=== PATIENT | female | born 1990 | race Caucasian/White ===

== ENCOUNTER 2020-08-28 09:04 | Emergency (ER) | payer BC, SELFPAY ==
--- NOTE | ~2020-08-28 | CT_ITS ---
EXAMINATION: CT abdomen pelvis w con DATE: 08/28/2020 10:14 INDICATION: Left lower quadrant and left flank abdominal pain. Nausea. Hematuria. TECHNIQUE: Computed tomography (CT) of the abdomen and pelvis was performed with 100 cc Omnipaque 350 intravenous contrast. Automated exposure control and iterative reconstruction technique were employe d. Exam dose: 1295.09 mGy-cm total exam DLP. COMPARISON: 07/18/2017 CTA chest and abdomen and pelvis FINDINGS: The lung bases are clear. Heart size is borderline. There is a left ventricular pacemaker l ead. No pericardial or pleural effusion. The lung bases are clear of consolidation. The liver, gallbladder, bile ducts, spleen, pancreas, pancreatic duct, and adrenal glands and right k idney are unremarkable. There is scarring and parenchymal loss of the left kidney. No urinary tract calculus or hydroureteron ephrosis. There is moderate diffuse thickening of the urinary bladder wall. The uterus and adnexal areas are un remarkable. The appendiceal stump appears unchanged since 07/18/2017 no bowel obstruction, bowel wall thickening, pneumatosis or intraperitoneal free air. Included skeletal structures are unremarkable. IMPRESSION: Chronic pyelonephritis of left kidney Moderate thickening of the urinary bladder wall; cystitis is not excluded Reviewed, dictated and finalized at [facility]. Reviewed, dictated and finalized at [facility].
[2020-08-28 09:08] VITALS: BP 141/81; PULSE 73; RESP 14; TEMP 36.1; O2SAT 100
--- NOTE | 2020-08-28 09:13 | ED.ABDPAIN ---
HPI - Abdominal Pain General Chief Complaint: Abdominal Pain Stated Complaint: left sided abd pain Time Seen by Provider: 08/28/20 09:13 History of Present Illness HPI narrative: 30 yo female w/ reccurent UTI, CHF presents to the ED with UTI and flank pain. She reports that she has had urinary frequency and dyuria for several days. Over the past day she has developed pain in the left flank radiating to the LLQ. the pain is modrate. She reports a previous renal US showing a small scarred left kidney. She is followed by a urologist, but says that she does not believe he is a good fit. No fever, vomiting, diarrhea, constipation. Related Data Allergies Allergy/AdvReac Type Severity Reaction Status Date / Time latex Allergy Mild Hives Verified 08/28/20 09:21 Review of Systems Review of Systems: All systems reviewed & are unremarkable except as noted in HPI and below Constitutional: Constitutional: Denies chills, Denies fever(s) and Denies weakness Cardiovascular: Cardiovascular: Denies chest pain Respiratory: Respiratory: Denies dyspnea Gastrointestinal: Gastrointestinal: Reports abdominal pain, Denies constipation, Denies diarrhea, Reports nausea and Denies vomiting Genitourinary: Genitourinary: Denies hematuria, Reports nocturia, Reports dysuria and Reports flank pain Neurologic: Denies dizziness and Denies weakness PMFSH Past Medical History Medical History (Updated 08/28/20 @ 13:08 by Pedro Belcher MD) CHF exacerbation Recurrent UTI Surgical History Surgical History (Updated 08/28/20 @ 13:09 by Pedro Belcher MD) History of cystoscopy Social History Social History Gender identity (if verbalized by the patient): Female Exam Const: General: healthy appearing, no acute distress and alert Nutritional Appearance: obese Orientation/consciousness: patient oriented x3 HENMT: Head: normal to inspection Resp: Effort & Inspection: normal respiratory effort Auscultation: clear to auscultation bilaterally, no rales, no rhonchi and no wheezes Cardio: Jugular venous distension: no JVD Rate: regular rate Rhythm: regular rhythm Heart sounds: no murmurs GI: Inspection: non-distended GI Palp: Yes Soft to palpation and Yes Tenderness to palpation present (GI) (LLQ) : General: Yes CVA tenderness on the left Skin: General skin exam: normal color Neuro: General: patient oriented x3 and moves all extremities Speech: normal speech Extrem: General: no edema Psych: Appearance: well kempt Affect: normal affect Course Course Emergency Course: I discussed the case with urology. They will see her in clinic. Vital Signs Vital signs: Vital Signs Temperature 36.1 C L 08/28/20 09:08 Pulse Rate 73 08/28/20 09:08 Respiratory Rate 14 08/28/20 09:08 Blood Pressure 141/81 H 08/28/20 09:08 Pulse Oximetry 100 08/28/20 09:08 Temperature 36.1 C L 08/28/20 09:08 Pulse Rate 70 08/28/20 11:41 Respiratory Rate 15 08/28/20 11:41 Blood Pressure 138/76 08/28/20 11:41 Pulse Oximetry 99 08/28/20 11:41 MDM - Abdominal Pain Differential Diagnosis Differential diagnosis: Likely calculus of kidney, constipation and other (pyelonephritis) Medical Records Attestation: I reviewed the patient's medical records. Lab Data Attestation: I reviewed the patient's lab results. Result diagrams: 08/28/20 09:34 08/28/20 09:34 Labs: Lab Results 08/28/20 08/28/20 08/28/20 Range/Units 09:17 09:34 09:34 WBC 9.4 (4.5-10.0) K/mm3 RBC 4.46 (4.2-5.4) M/mm3 Hgb 14.4 (12.0-15.0) g/dL Hct 41.3 (37.0-47.0) % MCV 92.6 (80-100) fl MCH 32.3 (26-34) pg MCHC 34.9 (32-36) g/dl RDW 12.4 (11.5-14.5) % Plt Count 314 (150-375) k/mm3 MPV 10.1 (7.4-10.4) fl Immature Gran % (Auto) 0.2 (0-0.5) % Neut % (Auto) 75.2 H (45.5-73.1) % Lymph % (Auto) 16.9 L (18.3-44.2) % [place] % (Auto) 6.8 (2.6-8.5) % Eos % (Auto)
[2020-08-28 09:35] LABS: Add Urine Microscopic? YES; Appearance Urine Cloudy (Clear); Bacteria Urine Trace /hpf; Bilirubin Urine Negative (Negative); Blood Urine 3+ (Negative); Color Urine Yellow (Yellow); Glucose Urine UA Negative (Negative); Ketones Urine Negative (Negative); Leukocyte Esterase Ur 3+ LEU/UL (Negative); Mucus Urine Rare /lpf; Nitrate Urine Negative (Negative); Protein Urine 2+ mg/dL (Negative); RBC Urine >75 /hpf (0-2); Specific Grav Ur 1.016 (1.001-1.035); Squamous Epithelial Cell Urine Few /hpf (Few); Urobilinogen Urine Negative mg/dL (<2.0); WBC Clumps Urine Present /HPF; WBC Urine >75 /hpf
[2020-08-28 09:43] LABS: Basophils Percent Auto 0.4 % (0.2-1.2); Eosinophils Absolute Auto 0.1 K/mm3 (0-0.3); Eosinophils Percent Auto 0.5 % (0-4.4); Hematocrit 41.3 % (37.0-47.0); Hemoglobin 14.4 g/dL (12.0-15.0); Immature Granulocyte Absolute 0.02 K/mm3 (0.00-0.031); Immature Granulocyte Percent A 0.2 % (0-0.5); Lymphocytes Absolute Auto 1.59 K/mm3 (0.9-3.2); Lymphocytes Percent Auto 16.9 % (18.3-44.2); Mean Corpuscular HGB Conc 34.9 g/dl (32-36); Mean Corpuscular Hemoglobin 32.3 pg (26-34); Mean Corpuscular Volume 92.6 fl (80-100); Mean Platelet Volume 10.1 fl (7.4-10.4); Monocytes Absolute Auto 0.6 K/mm3 (0.1-0.6); Monocytes Percent Auto 6.8 % (2.6-8.5); Neutrophils Absolute Auto 7.1 K/mm3 (1.3-6.7); Neutrophils Percent Auto 75.2 % (45.5-73.1); Platelet Count Result 314 k/mm3 (150-375); Red Blood Count 4.46 M/mm3 (4.2-5.4); Red Cell Distribution Width 12.4 % (11.5-14.5); White Blood Count 9.4 K/mm3 (4.5-10.0)
[2020-08-28 09:55] LABS: Alanine Aminotransferase 26 U/L (4-35); Albumin Level 4.7 g/dL (3.5-5.1); Alkaline Phosphatase 58 U/L (38-126); Anion Gap 9 mmol/L (8-16); Aspartate Amino Transferase 27 U/L (14-36); Bilirubin,Total 0.6 mg/dL (0.2-1.3); Blood Urea Nitrogen 16 mg/dL (7-17); Calcium 9.7 mg/dL (8.4-10.2); Carbon Dioxide 24 mmol/L (22-30); Chloride 105 mmol/L (98-107); Estimated CRCL calculation 102 ml/min; Estimated Glomerular Filt Rate > 60; Glucose 110 mg/dL (65-105); Lipase 86 U/L (23-300); Potassium 4.4 mmol/L (3.4-5.0); Sodium 138 mmol/L (137-145)
[2020-08-28 11:41] VITALS: BP 138/76; PULSE 70; RESP 15; O2SAT 99
== END 2020-08-28 11:42 | disposition home or self-care (01) ==
PROVIDERS: Emergency Provider Emergency Medicine
DX: N12 Tubulo-interstitial nephritis, not specified as acute or chronic (principal); I50.9 Heart failure, unspecified; Z87.440 Personal history of urinary (tract) infections
CPT/HCPCS: 36415; 74177; 80053; 81001; 81025; 83690; 85025; 87077; 87086; 87088; 87186; 96365; 99284; J0696; Q9967

== ENCOUNTER 2021-01-01 11:28 | Emergency (ER) | payer BC, SELFPAY ==
[2021-01-01 11:30] VITALS: BP 140/77; PULSE 76; RESP 18; TEMP 36.4; O2SAT 100
[2021-01-01 11:44] LABS: Basophils Percent Auto 0.5 % (0.2-1.2); Eosinophils Percent Auto 0.6 % (0-4.4); Hematocrit 40.9 % (37.0-47.0); Hemoglobin 14.1 g/dL (12.0-15.0); Immature Granulocyte Absolute 0.02 K/mm3 (0.00-0.031); Immature Granulocyte Percent A 0.3 % (0-0.5); Lymphocytes Absolute Auto 1.93 K/mm3 (0.9-3.2); Lymphocytes Percent Auto 31.3 % (18.3-44.2); Mean Corpuscular HGB Conc 34.5 g/dl (32-36); Mean Corpuscular Hemoglobin 31.8 pg (26-34); Mean Corpuscular Volume 92.3 fl (80-100); Mean Platelet Volume 10.1 fl (7.4-10.4); Monocytes Absolute Auto 0.4 K/mm3 (0.1-0.6); Monocytes Percent Auto 6.5 % (2.6-8.5); Neutrophils Absolute Auto 3.8 K/mm3 (1.3-6.7); Neutrophils Percent Auto 60.8 % (45.5-73.1); Platelet Count Result 323 k/mm3 (150-375); Red Blood Count 4.43 M/mm3 (4.2-5.4); Red Cell Distribution Width 12.1 % (11.5-14.5); White Blood Count 6.2 K/mm3 (4.5-10.0)
[2021-01-01 11:57] LABS: Alanine Aminotransferase 19 U/L (4-35); Albumin Level 4.3 g/dL (3.5-5.1); Alkaline Phosphatase 60 U/L (38-126); Anion Gap 9 mmol/L (8-16); Aspartate Amino Transferase 21 U/L (14-36); Bilirubin,Total 0.2 mg/dL (0.2-1.3); Blood Urea Nitrogen 16 mg/dL (7-17); Calcium 8.8 mg/dL (8.4-10.2); Carbon Dioxide 22 mmol/L (22-30); Chloride 107 mmol/L (98-107); Estimated CRCL calculation 104 ml/min; Estimated Glomerular Filt Rate > 60; Glucose 185 mg/dL (65-105); Lipase 91 U/L (23-300); Sodium 138 mmol/L (137-145)
--- NOTE | 2021-01-01 12:00 | ED.ABDPAIN ---
HPI - Abdominal Pain General Chief Complaint: Abdominal Pain Stated Complaint: abd pain Time Seen by Provider: 01/01/21 11:50 Related Data Home Medications Medication Instructions Recorded Confirmed ciprofloxacin HCl 01/01/21 levothyroxine 01/01/21 losartan 01/01/21 metoprolol succinate PO 01/01/21 spironolactone 01/01/21 torsemide mg 01/01/21 01/01/21 trazodone 01/01/21 venlafaxine mg PO 01/01/21 Allergies Allergy/AdvReac Type Severity Reaction Status Date / Time latex Allergy Mild Hives Verified 01/01/21 11:54 Review of Systems Review of Systems: Narrative: Epigastric pain for the past 2 days. Associated with nausea and vomiting first thing in the morning. She recently completed 2 rounds of antibiotics for H. pylori. She is currently on cipro for a UTI. Additionally she has had some constipation. Constitutional: Constitutional: Denies chills and Denies fever(s) ENT: Reports system reviewed and no additional complaints, except as documented Cardiovascular: Cardiovascular: Denies chest pain Respiratory: Respiratory: Denies dyspnea Gastrointestinal: Gastrointestinal: Reports abdominal pain, Reports constipation, Reports nausea and Reports vomiting Genitourinary: Genitourinary: Denies hematuria and Denies dysuria Integumentary/Breasts: Skin/Breast: Reports system reviewed and no additional complaints, except as docu [facility] Past Medical History Medical History (Updated 01/01/21 @ 13:53 by Pedro Belcher MD) CHF exacerbation H. pylori infection Recurrent UTI Surgical History Surgical History (Updated 08/28/20 @ 13:09 by Pedro Belcher MD) History of cystoscopy Social History Social History Gender identity (if verbalized by the patient): Female Exam Const: General: healthy appearing, no acute distress and alert Orientation/consciousness: patient oriented x3 HENMT: Head: normal to inspection Resp: Effort & Inspection: normal respiratory effort Auscultation: clear to auscultation bilaterally, no rales, no rhonchi and no wheezes Cardio: Jugular venous distension: no JVD Rate: regular rate Rhythm: regular rhythm Heart sounds: no murmurs GI: Inspection: non-distended GI Palp: Yes Soft to palpation, Yes Tenderness to palpation present (GI) (epigastric and periumbilical), No Guarding due to palpation present (GI) and No Rebound tenderness present Skin: General skin exam: normal color Neuro: General: patient oriented x3 and moves all extremities Speech: normal speech Extrem: General: no edema Psych: Appearance: well kempt Affect: normal affect Course Vital Signs Vital signs: Vital Signs Temperature 36.4 C L 01/01/21 11:30 Pulse Rate 76 01/01/21 11:30 Respiratory Rate 18 01/01/21 11:30 Blood Pressure 140/77 01/01/21 11:30 Pulse Oximetry 100 01/01/21 11:30 Temperature 36.4 C L 01/01/21 11:30 Pulse Rate 78 01/01/21 13:09 Respiratory Rate 16 01/01/21 13:09 Blood Pressure 115/69 01/01/21 13:09 Pulse Oximetry 97 01/01/21 13:09 MDM - Abdominal Pain MDM Narrative Medical decision making narrative: Epigastric pain likely related to reflex or PUD. She had some relief from GI cocktail. I will start PPI and have her follow-up with her GI doctor Differential Diagnosis Differential diagnosis: Likely acute appendicitis, constipation and pancreatitis Medical Records Attestation: I reviewed the patient's medical records. Lab Data Attestation: I reviewed the patient's lab results. Result diagrams: 01/01/21 11:36 01/01/21 11:36 Labs: Lab Results 01/01/21 01/01/21 01/01/21 Range/Units 11:36 11:36 12:04 WBC 6.2 (4.5-10.0) K/mm3 RBC 4.43 (4.2-5.4) M/mm3 Hgb 14.1 (12.0-15.0) g/dL Hct 40.9 (37.0-47.0) % MCV 92.3 (80-100) fl MCH 31.8 (26-34) pg MCHC 34.5 (32-36) g/dl RDW 12.1 (11.5-14.5) % Plt Count 323 (150-375) k/mm3 MPV 10.1 (7.4-10.4) fl Imm
[2021-01-01 12:13] LABS: Add Urine Microscopic? NO; Appearance Urine Clear (Clear); Bilirubin Urine Negative (Negative); Blood Urine Negative (Negative); Color Urine Yellow (Yellow); Glucose Urine UA Negative (Negative); Ketones Urine Negative (Negative); Leukocyte Esterase Ur Negative LEU/UL (Negative); Nitrate Urine Negative (Negative); Protein Urine Negative (Negative); Urobilinogen Urine Negative mg/dL (<2.0)
[2021-01-01] MEDS: PANTOPRAZOLE SODIUM IV 40 MG VIAL IV PUSH (13:07)
[2021-01-01 13:09] VITALS: BP 115/69; PULSE 78; RESP 16; O2SAT 97
[2021-01-01 13:58] VITALS: BP 115/69; PULSE 76; RESP 15; O2SAT 99
== END 2021-01-01 13:59 | disposition home or self-care (01) ==
PROVIDERS: Emergency Medicine; Emergency Provider Emergency Medicine; PCP Family Medicine
DX: R10.13 Epigastric pain (principal); N39.0 Urinary tract infection, site not specified; I50.9 Heart failure, unspecified
CPT/HCPCS: 36415; 80053; 81003; 81025; 83690; 85025; 96374; 99284; A9270; C9113

== ENCOUNTER 2022-06-03 09:16 | Emergency (ER) | payer BC, SELFPAY ==
--- NOTE | ~2022-06-03 | US_ITS ---
US abdomen limited DATE: 06/03/2022 11:10 INDICATION: Right upper quadrant abdominal pain, vomiting TECHNIQUE: Real-time imaging of liver, pancreas, gallbladder COMPARISON: 08/28/2020 CT abdomen pelvis FINDINGS: There is hepatic steatosis. No hepatic or pancreatic space-occupying mass lesion. Normal he patopedal portal venous flow direction. No gallstones are evident. Gallbladder wall thickness is within upper normal range. Negative sonograp hic Hayes's sign. The common bile duct measures 5.1 mm, within normal range. IMPRESSION: No significant abnormality Reviewed, dictated and finalized at [facility] Reviewed, dictated and finalized at [facility]. IMPRESSION: No significant abnormality
--- NOTE | ~2022-06-03 | XR_ITS ---
EXAMINATION: XR chest 2V DATE: 06/03/2022 09:58 INDICATION: Presyncope. Shortness of breath. TECHNIQUE: Frontal and lateral views of the chest were obtained. COMPARISON: Chest 2 views 09/20/2018, CT abdomen and pelvis 08/28/2020 FINDINGS: The chest demonstrates clear lungs without pneumonia, pleural effusion, or pneumothorax. Th e heart size is normal. There is a left chest pacer/defibrillator with lead in right ventricle. IMPRESSION: 1. No acute cardiopulmonary disease. Reviewed, dictated and finalized at [facility].
[2022-06-03 09:24] VITALS: BP 135/92; PULSE 88; RESP 18; TEMP 36.6; O2SAT 100
--- NOTE | 2022-06-03 09:30 | ECG_ITS ---
Measurements Intervals [place] Rate: 76 P: 31 IN: 162 QRS: -15 QRSD: 99 T: -12 QT: 403 QTc: 456 Interpretive Statements SINUS RHYTHM LOW QRS VOLTAGE IN PRECORDIAL LEADS MODERATE VOLTAGE CRITERIA FOR LVH, CONSIDER NORMAL VARIANT BORDERLINE ECG NO PREVIOUS ECG AVAILABLE FOR COMPARISON Electronically Signed On 06-03-2022 12:49:50 CDT by Edgard Carter M.D.
--- NOTE | 2022-06-03 09:45 | ED.RECABL ---
HPI - Recheck/Abnormal Lab/Rx General Chief Complaint: Recheck/Abnormal Lab/Rx Stated Complaint: high bp, shakiness Time Seen by Provider: 06/03/22 09:38 Source: patient Mode of arrival: ambulatory Limitations: no limitations History of Present Illness HPI narrative: This is a 32-year-old female that presents to the emergency department for elevated blood pressure. Reports over the last week she has noted her blood pressures have been elevated. She has been taking her medications as prescribed. This morning while she was in the shower she was feeling lightheaded as if she could pass out. She vomited several times. She has also been feeling short of breath since last night. She has history of dilated cardiomyopathy and has a defibrillator. Follows with a automation technologist at [facility]. Denies chest pain or lower extremity edema. Related Data Home Medications Medication Instructions Recorded Confirmed ciprofloxacin HCl 500 mg tablet 01/01/21 levothyroxine 125 mcg tablet 01/01/21 losartan 25 mg tablet 01/01/21 metoprolol succinate 100 mg PO 01/01/21 tablet,extended release 24 hr spironolactone 50 mg tablet 01/01/21 torsemide 20 mg tablet mg 01/01/21 01/01/21 trazodone 100 mg tablet 01/01/21 venlafaxine 75 mg capsule,extended mg PO 01/01/21 release 24 hr Allergies Allergy/AdvReac Type Severity Reaction Status Date / Time latex Allergy Mild Hives Verified 06/03/22 10:19 Review of Systems Review of Systems: CONSTITUTIONAL: Denies fever CARDIOVASCULAR: Denies chest pain, or edema. RESPIRATORY: Reports dyspnea. GASTROINTESTINAL: Reports nausea and vomiting. Denies abdominal pain NEUROLOGIC: Reports headache. Denies numbness, or weakness. All systems reviewed & are unremarkable except as noted in HPI and below [facility] Past Medical History Medical History (Updated 06/03/22 @ 12:46 by Svitlana Cancino PA-C) CHF exacerbation Dilated cardiomyopathy H. pylori infection Recurrent UTI Surgical History Surgical History (Updated 08/28/20 @ 13:09 by Pedro Belcher MD) History of cystoscopy Social History Social History (Updated 06/03/22 @ 09:55 by Svitlana Cancino PA-C) Smoking status: Never smoker Substance use: current Substance use type: marijuana Gender identity (if verbalized by the patient): Female Exam Narrative: GENERAL: Well-appearing, well-nourished, and in no acute distress. HEAD: Normocephalic, atraumatic. EYES: EOMI. CHEST: Clear to auscultation. No respiratory distress. No wheezes rales or rhonchi HEART: Regular rate and rhythm. No murmur heard. Normal peripheral pulses. ABDOMEN: Soft, nontender, nondistended, normal active bowel sounds. EXTREMITIES: Normal range of motion. No edema or obvious deformity. SKIN: Warm, dry, no rash. NEURO: No focal deficits. Alert and oriented x3. Normal gait PSYCH: Normal mood and affect Course Consultations Consultation #1: Spoke with Dr. Okeefe, patient's automation technologist, about patient and work-up who will follow-up in clinic Date: 06/03/22 Vital Signs Vital signs: Vital Signs Temperature 97.9 F 06/03/22 09:24 Pulse Rate 88 06/03/22 09:24 Respiratory Rate 18 06/03/22 09:24 Blood Pressure 135/92 H 06/03/22 09:24 Pulse Oximetry 100 06/03/22 09:24 Oxygen Delivery Room Air 06/03/22 09:24 Temperature 97.9 F 06/03/22 09:24 Pulse Rate 95 06/03/22 11:34 Respiratory Rate 28 H 06/03/22 11:34 Blood Pressure 122/76 06/03/22 11:34 Pulse Oximetry 100 06/03/22 11:34 Oxygen Delivery Room Air 06/03/22 09:24 MDM - Recheck/Abnormal Lab/Rx MDM Narrative Medical decision making narrative: Patient presents to the emergency department for presyncopal episode this morning while in the shower. Patient is neurologically intact. Her vitals are stable. CBC metabolic panel without concerning findings. EKG without concerning changes. Baseline troponin is negative. BNP is not elevated. D-dimer is negative.
[2022-06-03 09:48] LABS: Basophils Percent Auto 0.6 % (0.2-1.2); Eosinophils Percent Auto 0.4 % (0-4.4); Hematocrit 41.4 % (37.0-47.0); Hemoglobin 14.1 g/dL (12.0-15.0); Immature Granulocyte Absolute 0.01 K/mm3 (0.00-0.031); Immature Granulocyte Percent A 0.2 % (0-0.5); Lymphocytes Absolute Auto 1.07 K/mm3 (0.9-3.2); Lymphocytes Percent Auto 21.1 % (18.3-44.2); Mean Corpuscular HGB Conc 34.1 g/dl (32-36); Mean Corpuscular Hemoglobin 32.1 pg (26-34); Mean Corpuscular Volume 94.3 fl (80-100); Mean Platelet Volume 10.1 fl (7.4-10.4); Monocytes Absolute Auto 0.3 K/mm3 (0.1-0.6); Monocytes Percent Auto 6.7 % (2.6-8.5); Neutrophils Absolute Auto 3.6 K/mm3 (1.3-6.7); Platelet Count Result 352 k/mm3 (150-375); Red Blood Count 4.39 M/mm3 (4.2-5.4); Red Cell Distribution Width 12.2 % (11.5-14.5); White Blood Count 5.1 K/mm3 (4.5-10.0)
[2022-06-03 10:03] LABS: Alanine Aminotransferase 24 U/L (6-35); Albumin Level 5.1 g/dL (3.5-5.1); Alkaline Phosphatase 55 U/L (38-126); Anion Gap 12 mmol/L (8-16); Aspartate Amino Transferase 23 U/L (14-36); Bilirubin,Total 0.7 mg/dL (0.2-1.3); Blood Urea Nitrogen 10 mg/dL (7-17); Calcium 9.5 mg/dL (8.4-10.2); Carbon Dioxide 24 mmol/L (22-30); Chloride 105 mmol/L (98-107); Estimated CRCL calculation 87 ml/min; Estimated Glomerular Filt Rate > 60; Glucose 146 mg/dL (65-110); Potassium 3.7 mmol/L (3.4-5.0); Sodium 141 mmol/L (137-145)
[2022-06-03 10:15] LABS: Prothrombin Time 12.8 Seconds (11.1-14.7)
[2022-06-03 10:16] LABS: Partial Thromboplastin Time 23.5 SECONDS (22.3-36.8)
[2022-06-03 10:18] VITALS: BP 157/87; PULSE 79; RESP 25; O2SAT 99
[2022-06-03 10:21] LABS: Lipase 58 U/L (23-300)
[2022-06-03 10:34] LABS: NT Pro B Type Natriuretic Pept 43 pg/mL (5-100); Troponin I < 0.012 ng/mL (0.000-0.034)
[2022-06-03] MEDS: SODIUM CHLORIDE 0.9% IV 500 ML 999 ML IV CONT (10:38)
[2022-06-03 10:39] LABS: Bacteria Urine Trace /hpf; Mucus Urine Few /lpf; RBC Urine 21-50 /hpf (0-2); Squamous Epithelial Cell Urine Many /hpf (Few); WBC Urine >75 /hpf
[2022-06-03 10:43] LABS: Appearance Urine Slightly Cloudy (Clear); Bilirubin Urine 1+ (Negative); Color Urine Yellow (Yellow); Glucose Urine UA Negative (Negative); Ketones Urine Negative (Negative); Leukocyte Esterase Ur 3+ LEU/UL (Negative); Nitrate Urine Positive (Negative); Protein Urine 1+ mg/dL (Negative); Specific Grav Ur 1.015 (1.001-1.035); pH Urine 7.5 (5.0-9.0)
[2022-06-03 10:46] LABS: Add Urine Microscopic? YES; Blood Urine Trace-Intact (Negative)
[2022-06-03 10:54] LABS: D Dimer 0.27 ug/mL (<0.48)
[2022-06-03 11:34] VITALS: BP 122/76; PULSE 95; RESP 28; O2SAT 100
[2022-06-03 13:04] VITALS: BP 133/77; PULSE 70; RESP 16; O2SAT 98
== END 2022-06-03 13:06 | disposition home or self-care (01) ==
PROVIDERS: Physician Assistant; Emergency Provider Emergency Medicine; PCP Family Medicine
DX: R55 Syncope and collapse (principal); I50.9 Heart failure, unspecified; Z87.440 Personal history of urinary (tract) infections
CPT/HCPCS: 36415; 71046; 76705; 80053; 81001; 81025; 83690; 83880; 84484; 85025; 85380; 85610; 85730; 87077; 87086; 87186; 93005; 96361; 96365; 96375; 99284; J0131; J0696; J7040